=== PATIENT | male | born 1985 | race Caucasian/White ===

== ENCOUNTER 2021-12-01 16:41 | Emergency (ER) | payer BC, OTHER ==
[2021-12-01] MEDS ORDERED: Sodium Chloride 0.9% 10 ML Syringe FLUSH PRN (17:24)
[2021-12-01 17:55] LABS: ANION GAP 9.2 mmol/L (5-15); CHLORIDE,CL 99 mmol/L (98-107); ESTIMATED GFR > 60 mL/min; SODIUM,NA 129 mmol/L (136-145)
== END 2021-12-01 18:17 ==
LOC: KA.ED 16:41
DX: S43.014A Anterior dislocation of right humerus, initial encounter (principal); Z88.0 Allergy status to penicillin; Z88.1 Allergy status to other antibiotic agents; Z79.899 Other long term (current) drug therapy; W01.198A Fall on same level from slipping, tripping and stumbling with subsequent striking against other object, initial encounter
CPT/HCPCS: 36415; 73030-RT; 80053; 85025; 93010; 99284; 99284-25

== ENCOUNTER 2025-02-09 22:42 | Emergency (ER) | payer BC ==
[2025-02-09 23:13] LABS: BASOPHILS ABSOLUTE AUTO 0.02 10^3/uL (0.00-0.10); BASOPHILS PERCENT AUTO 0.2 % (0.0-1.0); EOSINOPHILS ABSOLUTE AUTO 0.30 10^3/uL (0.10-0.30); EOSINOPHILS PERCENT AUTO 3.1 % (1.0-3.0); IMMATURE GRAN ABSOLUTE AUTO 0.01 10^3/uL (0.00-0.04); IMMATURE GRAN PERCENT AUTO 0.1 % (0.0-0.4); LYMPHOCYTES ABSOLUTE AUTO 2.14 10^3/uL (1.00-4.00); LYMPHOCYTES PERCENT AUTO 22.3 % (20.0-40.0); MEAN PLATELET VOLUME 7.4 fL (7.4-10.4); MONOCYTES ABSOLUTE AUTO 0.70 10^3/uL (0.10-0.80); MONOCYTES PERCENT AUTO 7.3 % (2.0-8.0); NEUTROPHILS ABSOLUTE AUTO 6.41 10^3/uL (2.50-7.00); NEUTROPHILS PERCENT AUTO 67.0 % (50.0-70.0); PLATELET COUNT,PLT 175 10^3/uL (150-400); RED BLOOD CELL COUNT 4.62 10^6/uL (4.50-6.00); RED CELL DISTRIBUTION WIDTH 11.6 % (11.5-14.5); WHITE BLOOD CELL COUNT,WBC 9.58 10^3/uL (5.00-10.00)
[2025-02-09 23:30] LABS: BLOOD UREA NITROGEN,BUN 17 mg/dL (7-18); CARBON DIOXIDE,CO2 32.4 mmol/L (21.0-32.0); CHLORIDE,CL 105 mmol/L (98-107); CREATININE 1.11 mg/dL (0.51-1.17); ESTIMATED GFR 87 mL/min (>=60); GLUCOSE RANDOM 95 mg/dL (70-140); POTASSIUM,K 4.3 mmol/L (3.5-5.1); SODIUM,NA 143 mmol/L (136-145)
[2025-02-09] MEDS: Ketorolac 30 MG/ML SDV IM ONE (23:57)
== END 2025-02-10 00:08 | disposition home or self-care (01) ==
LOC: KA.ED 22:42
DX: M76.51 Patellar tendinitis, right knee (principal); M70.51 Other bursitis of knee, right knee; Z88.1 Allergy status to other antibiotic agents; Z88.0 Allergy status to penicillin; Z88.8 Allergy status to other drugs, medicaments and biological substances; X50.1XXA Overexertion from prolonged static or awkward postures, initial encounter
CPT/HCPCS: 36415; 80048; 85025; 85379; 86140; 96372; 99283; J1885